=== PATIENT | male | born 1980 | race Caucasian/White ===

== ENCOUNTER → 2020-08-18 | Outpatient (CLI) | payer OTHER ==
[~2020-08-18] MED LIST: Cleocin HCl300 MG PO; Percocet 5-3251 EACH PO
[2020-08-22 10:08] LABS: COTININE Negative ng/mL (Cutoff=300)
== END ==
LOC: LAB SHORT 14:05 → LAB UCHC 14:05
PROVIDERS: Nurse Practitioner Family
DX: K40.90 Unilateral inguinal hernia, without obstruction or gangrene, not specified as recurrent (principal)